=== PATIENT | female | born 1955 | race Caucasian/White ===

== ENCOUNTER → 2021-02-20 | Outpatient (CLI) | payer MEDICARE, BC ==
[~2021-02-20] MED LIST: BAYER CHEWABLE81 MG PO; CALCIUM 600 +1 EAC3 PO; ELDERBERRY; LOSARTAN; MACROBID 100 M100 MG PO; MYRBETRIQ50 MG PO; NORVASC10 MG PO; OMEPRAZOLE20 MG PO; TOPROL XL100 MG PO; VITAMIN D
[2021-02-20 13:28] LABS: HEMOGLOBIN 13.3 gm/dl (12.3-15.3); RED BLOOD COUNT 4.31 M/UL (4.00-5.10); WHITE BLOOD COUNT 15.6 K/UL (4.5-11.0)
[2021-02-20 13:55] LABS: BUN/CREATININE RATIO 17 (0-10)
== END ==
LOC: OPSV2 12:09
PROVIDERS: Obstetrics & Gynecology
DX: Z01.818 Encounter for other preprocedural examination (principal); N95.0 Postmenopausal bleeding
CPT/HCPCS: 36415; 80053; 81001; 85025; 93005

== ENCOUNTER → 2021-02-23 | Day surgery (SDC) | payer MEDICARE, BC ==
[~2021-02-23] MED LIST changes: -ELDERBERRY; +ELDERBERRY PO; -LOSARTAN; +LOSARTAN PO; +NAPROSYN500 MG PO; -VITAMIN D; +VITAMIN D PO
== END | disposition home or self-care (01) ==
LOC: OR 06:13
DX: N84.0 Polyp of corpus uteri (principal); N95.0 Postmenopausal bleeding; K21.9 Gastro-esophageal reflux disease without esophagitis; I10 Essential (primary) hypertension; R35.0 Frequency of micturition; Z79.82 Long term (current) use of aspirin; Z96.651 Presence of right artificial knee joint; Z90.722 Acquired absence of ovaries, bilateral; Z20.822 Contact with and (suspected) exposure to COVID-19; E78.5 Hyperlipidemia, unspecified; Z85.3 Personal history of malignant neoplasm of breast
CPT/HCPCS: 71045; J0690; J1100; J1885; J2001; J2250; J2405; J2550; J2704; J3010; J7120

== ENCOUNTER 2021-03-12 04:02 | Inpatient (IN) | payer MEDICARE, BC ==
[~2021-03-12] VITALS: Ht 165.1 cm; Wt 72.0 kg
[2021-03-12] MEDS ORDERED: NITROFURANTOIN100 M1 PO (04:14)
[2021-03-12 05:56] LABS: HEMOGLOBIN 13.5 gm/dl (12.3-15.3); RED BLOOD COUNT 4.39 M/UL (4.00-5.10); WHITE BLOOD COUNT 17.5 K/UL (4.5-11.0)
[2021-03-12 10:11] LABS: BUN/CREATININE RATIO 26 (0-10)
[2021-03-13 01:57] LABS: HEMOGLOBIN 12.8 gm/dl (12.3-15.3); RED BLOOD COUNT 4.09 M/UL (4.00-5.10); WHITE BLOOD COUNT 19.6 K/UL (4.5-11.0)
[2021-03-13 02:38] LABS: BUN/CREATININE RATIO 28 (0-10)
[2021-03-14 02:22] LABS: HEMOGLOBIN 12.4 gm/dl (12.3-15.3); RED BLOOD COUNT 4.14 M/UL (4.00-5.10); WHITE BLOOD COUNT 16.5 K/UL (4.5-11.0)
[2021-03-14 02:48] LABS: BUN/CREATININE RATIO 33 (0-10)
[2021-03-15 05:18] LABS: HEMOGLOBIN 12.9 gm/dl (12.3-15.3); RED BLOOD COUNT 4.33 M/UL (4.00-5.10); WHITE BLOOD COUNT 16.8 K/UL (4.5-11.0)
[2021-03-15 06:07] LABS: BUN/CREATININE RATIO 25 (0-10)
[2021-03-15] MEDS ORDERED: ELIQUIS5 MG PO (10:25)
[2021-03-15] MEDS ORDERED: ELIQUIS 5 MG TAB5 MG PO (10:25)
== END 2021-03-15 12:03 | disposition home or self-care (01) | DRG 175 ==
LOC: PROG CARE 04:02
PROVIDERS: Internal Medicine; ADMIT Internal Medicine
PROC: B24BZZ4 Ultrasonography of Heart with Aorta, Transesophageal (ICD-10-PCS; principal; 2021-03-13)
DX: I26.09 Other pulmonary embolism with acute cor pulmonale (principal); J96.01 Acute respiratory failure with hypoxia; R65.10 Systemic inflammatory response syndrome (SIRS) of non-infectious origin without acute organ dysfunction; E87.2 Acidosis; Z20.822 Contact with and (suspected) exposure to COVID-19; I08.1 Rheumatic disorders of both mitral and tricuspid valves; E83.42 Hypomagnesemia; I10 Essential (primary) hypertension; I27.20 Pulmonary hypertension, unspecified; M19.90 Unspecified osteoarthritis, unspecified site; Z96.653 Presence of artificial knee joint, bilateral; Z87.440 Personal history of urinary (tract) infections; Z86.16 Personal history of COVID-19; Z85.3 Personal history of malignant neoplasm of breast; Z79.82 Long term (current) use of aspirin; Z86.718 Personal history of other venous thrombosis and embolism; Z79.01 Long term (current) use of anticoagulants; Z90.12 Acquired absence of left breast and nipple; Z90.81 Acquired absence of spleen; Z82.3 Family history of stroke
CPT/HCPCS: ECHO; 36415; 71046; 80048; 80053; 81001; 82550; 82553; 83605; 83735; 83880; 84484; 85025; 85027; 85379; 85610; 85730; 93005; 93306; 93970; J1644; J1650

== ENCOUNTER → 2022-02-08 | Outpatient (CLI) | payer MEDICARE, BC ==
[~2022-02-08] MED LIST changes: +ELIQUIS 5 MG TAB5 MG PO; +ELIQUIS5 MG PO; +NITROFURANTOIN100 M1 PO
== END ==
LOC: MRI 11:00
DX: G44.89 Other headache syndrome (principal); I67.82 Cerebral ischemia; R90.89 Other abnormal findings on diagnostic imaging of central nervous system
CPT/HCPCS: 36415; 70553; 82565; 84520; A9577